=== PATIENT | male | born 1945 | race Caucasian/White ===

== ENCOUNTER 2017-01-11 08:33 | Outpatient (CLI) | payer MEDICARE, OTHER ==
[~2017-01-11] VITALS: Ht 183 cm; Wt 109.0 kg
[~2017-01-11 08:33] MED LIST: ALEVE 220MG220 MG PO; ALEVE220 MG PO; AMBIEN 5MG TABLE5 MG PO; ASPIRIN 81M81 MG/TA2 PO; ASPIRIN E.C. 8181 MG PO; BETIMOL 0.5% OPH5 ML; CIPRO 500MG TA500 MG PO; CIPRO500 MG PO; CPAP; FERROUS SULFATE65 MG PO; FLOMAX 0.40.4 MG/CAP PO; FORTAMET500 MG PO; GLUCOPHAGE500 MG/TAB PO; LEVAQUIN 5500 MG/TA1 PO; LIPITOR 10MG10 MG PO; LISINOPRIL10 MG PO; LORTAB 5/500 501 TAB PO; LORTAB PO; LUMIGAN 2.5 ML2.5 M1 OP; LUMIGAN EYE GTTS OD; MOBIC15 MG PO; MYRBETR50MG PO; NEURONTIN300 MG/CAP PO; PROAIR HFA0.09 MG/AC IH; RT ADVAIR 228 DISKUS IH; RT SPIRIVA18 MCG IH; SYNTHROID0.05 MG/TA PO; SYNTHROID0.075 MG/T PO; THEO-DUR 2200 MG/TAB PO; ULTRAM 50MG TAB50 MG PO; WELLBUTRIN XL150 MG PO; ZANTAC 150MG T150 MG PO; ZESTRIL 10MG10 MG PO; ZESTRIL 5MG5 MG PO
[2017-01-11] MEDS ORDERED: NORCO 325 MG-51 TAB PO (09:08)
[2017-01-11 09:24] VITALS: BP 125/76; PULSE 66; TEMP 97.1
[2017-01-11] MEDS ORDERED: CEPHALEXIN500 M1 PO (10:24)
[2017-01-11 10:32] VITALS: BP 137/106; PULSE 71
== END 2017-01-11 10:33 | disposition home or self-care (01) ==
LOC: EUO 08:33
DX: R55 Syncope and collapse (principal)
CPT/HCPCS: C1764

== ENCOUNTER 2017-01-26 13:33 | Day surgery (SDC) | payer MEDICARE, OTHER ==
[~2017-01-26] VITALS: Ht 182.9 cm; Wt 109.4 kg
[2017-01-26] VITALS (7 sets, daily range): BP systolic 121–143; BP diastolic 75–104; PULSE 78–88; TEMP 98.2–98.4
[~2017-01-26 13:33] MED LIST changes: +CEPHALEXIN500 M1 PO; +NORCO 325 MG-51 TAB PO
[2017-01-26] MEDS ORDERED: PROAIR HFA0.09 MG/AC IH (15:12)
[2017-01-26] MEDS ORDERED: ULTRAM 50MG TAB50 MG PO (15:15)
[2017-01-26] MEDS ORDERED: OMNICEF 300MG300 MG PO (15:16)
[2017-01-26] MEDS ORDERED: FLOMAX 0.40.4 MG/CAP PO (15:16)
[2017-01-27 01:16] VITALS: BP 119/64; PULSE 80; TEMP 98
[2017-01-27 05:34] VITALS: BP 111/69; PULSE 85; TEMP 98.5
[2017-01-27 10:19] VITALS: BP 130/77; PULSE 88; TEMP 98.3
[2017-01-27 14:21] VITALS: BP 133/63; PULSE 97; TEMP 98.9
== END 2017-01-27 14:45 | disposition home or self-care (01) ==
LOC: SDCO 13:33 → SURG 18:26 → SDCO 01-27 14:45
DX: N32.89 Other specified disorders of bladder (principal); R35.0 Frequency of micturition; N39.41 Urge incontinence; R82.99 Other abnormal findings in urine; R35.1 Nocturia; R39.12 Poor urinary stream; M19.90 Unspecified osteoarthritis, unspecified site; J44.9 Chronic obstructive pulmonary disease, unspecified; I10 Essential (primary) hypertension; G47.00 Insomnia, unspecified; Z87.442 Personal history of urinary calculi; G47.30 Sleep apnea, unspecified; Z79.899 Other long term (current) drug therapy; Z79.82 Long term (current) use of aspirin; Z87.891 Personal history of nicotine dependence
CPT/HCPCS: A4215; A9284; J0585; J2270; J2704; J3010; J7030

== ENCOUNTER 2018-10-17 15:00 | Inpatient (IN) | payer MEDICARE ==
[~2018-10-17] VITALS: Ht 182.9 cm; Wt 104.7 kg
[~2018-10-17 15:00] MED LIST changes: -BETIMOL 0.5% OPH5 ML; +COMBIGAN 0.2%-0.5 ML OU; +OMNICEF 300MG300 MG PO
[2018-10-17 18:12] VITALS: BP 147/70; PULSE 88; TEMP 98.4
[2018-10-18] MEDS ORDERED: TYLENOL 325MG325 MG PO (14:43)
[2018-10-18] MEDS ORDERED: WELLBUTRIN XL150 MG PO (14:44)
[2018-10-18] MEDS ORDERED: LOVENOX 3030 MG/0.3 SQ (14:45)
[2018-10-18 18:17] VITALS: BP 123/68; PULSE 100; TEMP 99.2
[2018-10-19 05:11] VITALS: BP 145/79; PULSE 86; TEMP 98.4
[2018-10-19 15:30] VITALS: BP 138/60; PULSE 83; TEMP 97.9
[2018-10-20 03:31] VITALS: BP 136/75; PULSE 79; TEMP 98.5
[2018-10-20 06:43] LABS: BASO # 0.1 (0.0-0.2); BASO % 0.7 % (0.0-2.0); EOS # 0.9 (0.0-0.7); EOS % 11.1 % (0-4.0); GRAN # 4.8 (1.4-6.5); GRAN % 62.1 % (42.2-75.2); LYMPH # 1.1 (1.2-3.4); MEAN CELL VOLUME 96 fl (80.0-100.0); MEAN CORPUSCULAR HGB CONC 30 g/dl (33.0-37.0); MEAN PLATELET VOLUME 9.6 fl (7.4-10.4); MONO # 0.9 (0.1-0.6); MONO % 11.4 % (1.7-9.3); PLATELET COUNT 450 K/mm3 (130-400); REDCELL DISTRIBUTION WIDTH-CV 15.6 % (11.5-14.5)
[2018-10-20 06:50] LABS: HEMATOCRIT 23.1 % (42.0-52.0); MEAN CORPUSCULAR HEMOGLOBIN 29 pg (27.0-31.0)
[2018-10-20 07:11] LABS: ALBUMIN 2.7 gm/dL (3.5-5.0); BILIRUBIN,TOTAL 0.3 mg/dL (0.0-1.0); CALCIUM 8.1 mg/dL (8.4-10.2); CREATININE, serum 2.66 mg/dL (0.66-1.25); MAGNESIUM 1.7 mg/dL (1.6-2.3); POTASSIUM 3.6 mmol/L (3.4-5.0); TOTAL PROTEIN 5.4 gm/dL (6.4-8.2)
[2018-10-20 17:41] VITALS: BP 126/66; PULSE 75; TEMP 97.9
[2018-10-21 04:35] VITALS: BP 118/52; PULSE 74; TEMP 97.7
[2018-10-21 18:22] VITALS: BP 122/66; PULSE 86; TEMP 97.6
[2018-10-22 04:23] VITALS: BP 153/85; PULSE 72; TEMP 98.2
[2018-10-22 17:19] VITALS: BP 114/64; PULSE 91; TEMP 98.2
[2018-10-23 03:44] VITALS: BP 126/68; PULSE 79; TEMP 99.1
[2018-10-23 14:25] LABS: BASO # 0.1 (0.0-0.2); BASO % 0.4 % (0.0-2.0); EOS # 0.3 (0.0-0.7); EOS % 2.4 % (0-4.0); GRAN # 11.3 (1.4-6.5); GRAN % 83.4 % (42.2-75.2); LYMPH # 0.7 (1.2-3.4); LYMPH % 5.4 % (20.0-51.0); MEAN CELL VOLUME 97 fl (80.0-100.0); MEAN CORPUSCULAR HGB CONC 29 g/dl (33.0-37.0); MEAN PLATELET VOLUME 9.3 fl (7.4-10.4); MONO % 7.6 % (1.7-9.3); PLATELET COUNT 593 K/mm3 (130-400); RED BLOOD COUNT 2.82 M/mm3 (4.20-5.60); REDCELL DISTRIBUTION WIDTH-CV 15.4 % (11.5-14.5)
[2018-10-23 14:27] LABS: HEMATOCRIT 27.3 % (42.0-52.0); MEAN CORPUSCULAR HEMOGLOBIN 28 pg (27.0-31.0)
[2018-10-23 14:51] LABS: CALCIUM 8.4 mg/dL (8.4-10.2); CREATININE, serum 2.84 mg/dL (0.66-1.25); MAGNESIUM 1.7 mg/dL (1.6-2.3); PHOSPHOROUS 3.6 mg/dL (2.5-4.5); POTASSIUM 3.7 mmol/L (3.4-5.0)
[2018-10-23 15:15] VITALS: BP 106/55; PULSE 92; TEMP 98.4
[2018-10-24 06:32] LABS: BASO # 0.1 (0.0-0.2); BASO % 0.6 % (0.0-2.0); EOS # 0.3 (0.0-0.7); EOS % 2.9 % (0-4.0); GRAN # 7.4 (1.4-6.5); GRAN % 74.2 % (42.2-75.2); LYMPH % 10.5 % (20.0-51.0); MEAN CELL VOLUME 96 fl (80.0-100.0); MEAN CORPUSCULAR HGB CONC 30 g/dl (33.0-37.0); MEAN PLATELET VOLUME 9.2 fl (7.4-10.4); MONO # 1.1 (0.1-0.6); MONO % 11.1 % (1.7-9.3); PLATELET COUNT 496 K/mm3 (130-400); RED BLOOD COUNT 2.44 M/mm3 (4.20-5.60); REDCELL DISTRIBUTION WIDTH-CV 15.4 % (11.5-14.5)
[2018-10-24 06:36] LABS: HEMATOCRIT 23.4 % (42.0-52.0); MEAN CORPUSCULAR HEMOGLOBIN 29 pg (27.0-31.0)
[2018-10-24 06:46] LABS: CALCIUM 8.3 mg/dL (8.4-10.2); CREATININE, serum 2.73 mg/dL (0.66-1.25); MAGNESIUM 1.8 mg/dL (1.6-2.3); POTASSIUM 3.7 mmol/L (3.4-5.0)
[2018-10-24 06:53] VITALS: BP 108/55; PULSE 82; TEMP 98.4
[2018-10-24 18:24] VITALS: BP 109/54; PULSE 80; TEMP 99.1
[2018-10-25 05:26] VITALS: BP 105/51; PULSE 72; TEMP 98.7
[2018-10-25 07:09] LABS: IRON,SERUM 12 ug/dL (35-150)
[2018-10-25 07:18] LABS: TOTAL IRON BINDING CAPACITY 226 ug/dL (261-462)
[2018-10-25 07:45] LABS: FERRITIN 251 ng/mL (18-464)
[2018-10-25 18:29] VITALS: BP 113/63; PULSE 87; TEMP 99.1
[2018-10-26 04:06] VITALS: BP 114/66; PULSE 71; TEMP 98.2
[2018-10-26 17:27] VITALS: BP 132/68; PULSE 81; TEMP 99.1
[2018-10-27 05:06] VITALS: PULSE 78
[2018-10-27] MEDS ORDERED: CEPHALEXIN500 M1 PO (09:21)
[2018-10-27] MEDS ORDERED: DIFLUCAN200 MG PO (09:23)
[2018-10-27] MEDS ORDERED: FERROUS SU325 MG/TAB PO (09:23)
[2018-10-27] MEDS ORDERED: DESENEX21 TP (09:28)
[2018-10-27] MEDS ORDERED: UNIPHYL600 MG PO (09:28)
[2018-10-27] MEDS ORDERED: TIMOLOL MALEATE5 M1 OP (09:31)
[2018-10-27] MEDS ORDERED: ROXICODONE 55 MG/TAB PO (09:31)
[2018-10-27] MEDS ORDERED: CIPRO 500MG TA500 MG PO (09:33)
== END 2018-10-27 15:00 | disposition home or self-care (01) | DRG 948 ==
PROVIDERS: Internal Medicine
DX: R53.81 Other malaise (principal); N18.4 Chronic kidney disease, stage 4 (severe); E87.2 Acidosis; D37.3 Neoplasm of uncertain behavior of appendix; N31.9 Neuromuscular dysfunction of bladder, unspecified; Z93.2 Ileostomy status; J44.9 Chronic obstructive pulmonary disease, unspecified; E11.22 Type 2 diabetes mellitus with diabetic chronic kidney disease; D63.1 Anemia in chronic kidney disease; I25.10 Atherosclerotic heart disease of native coronary artery without angina pectoris; E78.5 Hyperlipidemia, unspecified; Z87.891 Personal history of nicotine dependence; Z85.72 Personal history of non-Hodgkin lymphomas; G47.33 Obstructive sleep apnea (adult) (pediatric)
CPT/HCPCS: 99222-AI; 99232-AI; 99239; J1650; J1815

== ENCOUNTER 2018-11-08 12:54 | Inpatient (IN) | payer MEDICARE ==
[~2018-11-08] VITALS: Ht 182.9 cm; Wt 100.1 kg
[~2018-11-08 12:54] MED LIST changes: +DESENEX21 TP; +DIFLUCAN200 MG PO; +FERROUS SU325 MG/TAB PO; +LOVENOX 3030 MG/0.3 SQ; +ROXICODONE 55 MG/TAB PO; +TIMOLOL MALEATE5 M1 OP; +TYLENOL 325MG325 MG PO; +UNIPHYL600 MG PO
[2018-11-08 14:56] VITALS: BP 115/66; PULSE 96; TEMP 97.8
[2018-11-08] MEDS ORDERED: UNIPHYL600 MG PO (15:27)
[2018-11-08] MEDS ORDERED: LASIX 40MG TABL40 MG PO (15:28)
--- NOTE | 2018-11-08 16:04 | NUR ---
Pt arrived to room 316 via EMS. at bedside. Pt is A/O x3. His breathing is currently even and unlabored on 2L O2 via NC. Pt has left arm wrapped in gauze and chux, a lot of weeping from arm. Pt has jimenes draining dependently. Intermittent nausea present. POC discussed with patient and , deny further needs. Call light within reach.
--- NOTE | 2018-11-08 18:01 | NUR ---
Lab unable to draw blood, will be sending up new tech to attempt blood draw. Levaquin not run at this time.
[2018-11-08 20:00] VITALS: BP 107/53; PULSE 98; TEMP 96.4
[2018-11-09] VITALS (8 sets, daily range): BP systolic 111–128; BP diastolic 52–96; PULSE 84–96; TEMP 96.1–98.3
--- NOTE | 2018-11-09 05:52 | NUR ---
Pt sitting in bed watching TV on initial encounter, shift assessments completed. Pt slept well during the night with no C/O pain, VS have been stable during the night, Pt did have a bowel movement during the shift. The drain line from the ilieal conduit colostomy appliance to the jimenes collection bag came off twice during the shift, the connetion hose ends were cleaned and taped with foam tape to maintain a connection between the two devices. No C/O pain during the night, VS have been stable.
--- NOTE | 2018-11-09 10:32 | NUR ---
Initial visit; Patient thanked Car Carder for looking in on him and keeping him in her prayers.
--- NOTE | 2018-11-09 11:02 | NUR ---
Assessment completed, alert/oriented, vital signs stable, denies pain or discomfort, denies nausea/vomitting and stated he is able to keep some food/drink down but does not have much of an appetite, Associate Professor Of Literature and nursing have been unable to obtain any blood from him for lab work/ I have notified and he is arranging to have a central line place with IR, heart RRR/distal pulses are palpable, lung CTA/ diminished, has large skin tear to left upper/ posterior arm from a fall at home, I have applied a dressing to this wound, in room at this time to discuss plan of care with patient and his
[2018-11-09 16:07] LABS: BASO # 0.1 (0.0-0.2); BASO % 0.3 % (0.0-2.0); EOS % 0.1 % (0-4.0); GRAN # 24.1 (1.4-6.5); GRAN % 90.5 % (42.2-75.2); HEMOGLOBIN 10.1 g/dl (13.5-18.0); LYMPH # 0.9 (1.2-3.4); LYMPH % 3.5 % (20.0-51.0); MEAN CELL VOLUME 92 fl (80.0-100.0); MEAN CORPUSCULAR HEMOGLOBIN 28 pg (27.0-31.0); MEAN CORPUSCULAR HGB CONC 30 g/dl (33.0-37.0); MEAN PLATELET VOLUME 9.8 fl (7.4-10.4); MONO # 1.2 (0.1-0.6); MONO % 4.4 % (1.7-9.3); PLATELET COUNT 311 K/mm3 (130-400); RED BLOOD COUNT 3.63 M/mm3 (4.20-5.60); REDCELL DISTRIBUTION WIDTH-CV 15.9 % (11.5-14.5)
[2018-11-09 16:19] LABS: ALBUMIN 2.8 gm/dL (3.5-5.0); CALCIUM 8.5 mg/dL (8.4-10.2); CREATININE, serum 3.58 mg/dL (0.66-1.25); PHOSPHOROUS 5.8 mg/dL (2.5-4.5); POTASSIUM 4.8 mmol/L (3.4-5.0)
--- NOTE | 2018-11-09 16:21 | NUR ---
BETI met with the patient and patient's , Silvia, to discuss discharge plan. The patient was recently discharged, 10/27, from [facility] with outpatient PT/OT set up. The patient's reports that the patient was doing great for a few days and then he got weaker, had no appetite, and was falling. The patient lives in [place] with his . The patient's reports that the patient was needing assistance with ADL's half of the time and that he has a cane and walker. The patient's PCP is Dr. Casey Haile and he receives his medications at the [facility] in [place]. The patient's reports no difficulties obtaininig his meds. The patient does not have advanced directives, but the patient's reports that the patient still has the form SW provided him during his last stay. The patient's reports that they will look over it again. SW to continue to follow to ensure a safe discharge.
[2018-11-09 16:57] LABS: HEMATOCRIT 33.4 % (42.0-52.0)
--- NOTE | 2018-11-09 22:51 | NUR ---
PT HAS SOME C/O NAUSEA, NO NOTED EMISIS. PT HAS ZOFRAN ON ORDER. OFFERED PT ZOFRAN PT REFUSED, STATED "I'LL BE ALRIGHT" INFORMED PT THAT IF HE STARTS TO VOMIT I COULD GET HIM SOMETHING FOR IT. PT SAID "OK". THIS NURSE RETURNED LATER TO PT ROOM TO [facility]. PT HAD C/O CHEST PAIN THAT WAS A SHARP TYPE OF PAIN THAT COMES AND GOES. PT STATED THAT HIS NAUSEA IS HAS BEEN COMING AND GOING BUT NOT INTOLERATBLE. THIS NURSE TOOK VITALS, VITALS WNL. OFFERED PT THE ZOFRAN AGAIN, PT REFUSED. PT STATED THAT HE WILL BE FINE. INFORMED PT THAT I WOULD CHECK ON HIM AGAIN AT A LATER TIME TO MAKE SURE HES DOING OK.
[2018-11-10 00:46] VITALS: BP 99/70; PULSE 91; TEMP 97.5
[2018-11-10 04:00] VITALS: BP 132/66; PULSE 95; TEMP 97.9
--- NOTE | 2018-11-10 04:05 | NUR ---
PT HAD NO FURTHER C/O NAUSEA OR NOTED VOIMITTING. NO FURTHER C/O CHEST PAIN AFTER THE FIRST COMPLAINT. APPEARED TO HAVE RESTED WELL THIS NOC.
[2018-11-10 06:21] LABS: BASO # 0.1 (0.0-0.2); BASO % 0.3 % (0.0-2.0); EOS # 0.1 (0.0-0.7); EOS % 0.3 % (0-4.0); GRAN # 18.2 (1.4-6.5); LYMPH % 4.9 % (20.0-51.0); MEAN CELL VOLUME 94 fl (80.0-100.0); MEAN CORPUSCULAR HGB CONC 30 g/dl (33.0-37.0); MEAN PLATELET VOLUME 10.1 fl (7.4-10.4); MONO # 0.7 (0.1-0.6); MONO % 3.6 % (1.7-9.3); PLATELET COUNT 292 K/mm3 (130-400); RED BLOOD COUNT 3.42 M/mm3 (4.20-5.60); REDCELL DISTRIBUTION WIDTH-CV 15.9 % (11.5-14.5)
[2018-11-10 07:12] LABS: ALBUMIN 2.6 gm/dL (3.5-5.0); CALCIUM 8.4 mg/dL (8.4-10.2); CREATININE, serum 3.48 mg/dL (0.66-1.25); PHOSPHOROUS 5.1 mg/dL (2.5-4.5); POTASSIUM 4.5 mmol/L (3.4-5.0)
[2018-11-10 07:18] LABS: HEMOGLOBIN 9.5 g/dl (13.5-18.0); MEAN CORPUSCULAR HEMOGLOBIN 28 pg (27.0-31.0)
[2018-11-10 07:26] VITALS: BP 109/72; PULSE 82; TEMP 98.2
--- NOTE | 2018-11-10 07:55 | NUR ---
Assessment completed, alert/oriented, vital signs stable, denies pain this morning, stated "stomach not feeling too bad today" and he is sitting up in bed eating a muffin, abdomen is soft and BS+, denies N/V this morning, heart RRR/distal pulses are palpable, illeal conduit draining/ moderate dark urine output, Right sided TLIJ central line was placed yesterday and is working good/ labs drawn this morning, records requested from [facility], denies needs at this time
[2018-11-10 10:45] VITALS: BP 104/64; PULSE 95; TEMP 98.5
--- NOTE | 2018-11-10 10:54 | NUR ---
Follow-up visit; Patient thanked Manager [employer] for looking in on him and offering God's blessings today.
[2018-11-10 16:31] VITALS: BP 112/69; PULSE 87; TEMP 98.7
[2018-11-10 19:41] VITALS: BP 123/72; PULSE 96; TEMP 97.5
[2018-11-11 00:22] VITALS: BP 111/69; PULSE 93; TEMP 97.8
--- NOTE | 2018-11-11 04:18 | NUR ---
PT HAD UNEVENTFUL NOC. AT HS PT WALKED TO BATHROOM, TO ATTEMPT A BM. PT WAS ABLE TO SLOWLY WALK TO BATHROOM. PT WAS STEADY BUT STATED HE WAS DIZZY AT TIMES, SOB, AND WEAK. NO NOTED PAIN WITH AMBULATION. PT STATED HE DIDNT WANT TO GET UP TO WALK AGAIN UNTIL A LATER DATE. WAS AT BEDSIDE AT THAT TIME. NO N/V/D THIS SHIFT. NO C/O PAIN. WORE CPAP THROUGHOUT NOC. PT APPEARED TO HAVE SLEPT WELL.
[2018-11-11 05:00] VITALS: BP 95/64; PULSE 93; TEMP 97.4
[2018-11-11 05:59] LABS: BASO % 0.2 % (0.0-2.0); EOS # 0.1 (0.0-0.7); EOS % 0.7 % (0-4.0); GRAN # 13.4 (1.4-6.5); GRAN % 88.3 % (42.2-75.2); LYMPH # 0.9 (1.2-3.4); LYMPH % 5.8 % (20.0-51.0); MEAN CELL VOLUME 93 fl (80.0-100.0); MEAN CORPUSCULAR HGB CONC 30 g/dl (33.0-37.0); MEAN PLATELET VOLUME 9.9 fl (7.4-10.4); MONO # 0.7 (0.1-0.6); MONO % 4.3 % (1.7-9.3); PLATELET COUNT 262 K/mm3 (130-400); RED BLOOD COUNT 3.33 M/mm3 (4.20-5.60)
[2018-11-11 06:16] LABS: ALBUMIN 2.6 gm/dL (3.5-5.0); CALCIUM 8.2 mg/dL (8.4-10.2); CREATININE, serum 3.27 mg/dL (0.66-1.25); PHOSPHOROUS 4.1 mg/dL (2.5-4.5); POTASSIUM 4.2 mmol/L (3.4-5.0)
[2018-11-11 06:21] LABS: HEMATOCRIT 30.8 % (42.0-52.0); HEMOGLOBIN 9.3 g/dl (13.5-18.0); MEAN CORPUSCULAR HEMOGLOBIN 28 pg (27.0-31.0)
[2018-11-11 08:24] VITALS: BP 119/69; PULSE 83; TEMP 98.1
--- NOTE | 2018-11-11 10:06 | NUR ---
Pt alert and oriented and resting in bed. Pt has s/t on right elbow from previous fall. Pt has right IJ central line that is patent and no redness or infiltration noted. Pt denies pain and SOB. Pt ileal conduit patent and no surrounding redness noted. Pt has call light in reach and denies needs.
[2018-11-11 11:49] VITALS: BP 112/70; PULSE 90; TEMP 97.3
[2018-11-11 15:49] VITALS: BP 109/66; PULSE 87; TEMP 97.6
--- NOTE | 2018-11-11 18:33 | NUR ---
Pt dressing and cap change completed for right neck triple lumen central line. Pt did not have any other IV in place at shift change this am. Pt stable and had an episode of incontinent BM this evening and cares provided. Pt has spouse at bedside and call light in reach.
[2018-11-11 19:52] VITALS: BP 94/56; PULSE 86; TEMP 98.4
[2018-11-12] VITALS: BP 110/68; PULSE 90; TEMP 97.4
[2018-11-12 03:36] VITALS: BP 109/62; PULSE 86; TEMP 97.4
--- NOTE | 2018-11-12 04:01 | NUR ---
PT HAD UNEVENTFUL NOC. REFUSED TO WEAR CPAP TONIGHT. NO NOTED PAIN OR N/V/D. NO ISSUES OR CONSERNS VOICED THIS SHIFT.
[2018-11-12 05:36] LABS: BASO % 0.3 % (0.0-2.0); EOS # 0.2 (0.0-0.7); EOS % 1.6 % (0-4.0); GRAN # 11.2 (1.4-6.5); GRAN % 84.3 % (42.2-75.2); LYMPH % 7.6 % (20.0-51.0); MEAN CELL VOLUME 94 fl (80.0-100.0); MEAN CORPUSCULAR HGB CONC 30 g/dl (33.0-37.0); MEAN PLATELET VOLUME 9.8 fl (7.4-10.4); MONO # 0.8 (0.1-0.6); MONO % 5.7 % (1.7-9.3); PLATELET COUNT 264 K/mm3 (130-400); RED BLOOD COUNT 3.38 M/mm3 (4.20-5.60); REDCELL DISTRIBUTION WIDTH-CV 16.3 % (11.5-14.5)
[2018-11-12 05:37] LABS: HEMATOCRIT 31.9 % (42.0-52.0); HEMOGLOBIN 9.4 g/dl (13.5-18.0); MEAN CORPUSCULAR HEMOGLOBIN 28 pg (27.0-31.0)
[2018-11-12 05:44] LABS: ALBUMIN 2.6 gm/dL (3.5-5.0); CALCIUM 8.2 mg/dL (8.4-10.2); CREATININE, serum 2.98 mg/dL (0.66-1.25); PHOSPHOROUS 3.7 mg/dL (2.5-4.5); POTASSIUM 4.1 mmol/L (3.4-5.0)
--- NOTE | 2018-11-12 07:19 | NUR ---
Pt sitting up in bed eating breakfast. Pt denies pain. Pt alert and oriented. Pt has call light in reach.
[2018-11-12 07:24] VITALS: BP 114/63; PULSE 96; TEMP 97.5
--- NOTE | 2018-11-12 08:32 | NUR ---
Pt alert and oriented and just finished breakfast. Pt denies pain and SOB. Pt am assessment completed. Pt given am meds with education. Pt central line to RIJ flushed and patent. No redness or infiltration noted and blood return noted. Pt ileal conduit patent and some light yellow mucous noted in bag. Pt states he changes every three days and tomorrow will be day 3 per pt. Pt has call light in reach and denies needs.
--- NOTE | 2018-11-12 09:57 | NUR ---
Pt trying to rest but does not seem to be able to sleep. Pt little confused about time of day but reorients easily. Pt called his spouse. Pt oxygen saturation was checked and saturation 98% on room air. Pt has call light in reach and fall precautions in place and bed alarm on.
[2018-11-12 12:30] VITALS: BP 102/69; PULSE 80; TEMP 97.4
[2018-11-12 16:09] VITALS: BP 108/67; PULSE 83; TEMP 97.6
--- NOTE | 2018-11-12 16:25 | NUR ---
Pt was assisted by 2 to BSC with gait belt. Pt shuffled steps and was unsteady and unable to bear weight long. Pt did have small BM while on BSC. Pt given bath while up and bed linens changed. Pt had oxygen on via nasal cannula and SOB noted with increased activity. Pt assisted back to bed per request. Pt spouse at bedside. Pt has PT eval and tx ordered. Pt has call light in reach and ileal conduit patent and needs to be changed 11/13/18.
[2018-11-12 19:53] VITALS: BP 106/51; PULSE 86; TEMP 98.1
--- NOTE | 2018-11-12 20:30 | NUR ---
Initial shift assessment done- alert/oriented tonight- denies pain, wearing home CPAP, states he feels tired tonight,,Ileal conduit to DD jimenes bag- urine yellow with sediment. Incontinent of urine- cleaned up/repositioned
[2018-11-13] VITALS (7 sets, daily range): BP systolic 91–121; BP diastolic 63–76; PULSE 72–89; TEMP 97.6–98.8
--- NOTE | 2018-11-13 05:11 | NUR ---
Quiet night- Did sleep for a few hours, now awake, wanting some tea- states its time for work,,confused-reoriented. VSS. SCD,s on. Ileo-conduit with 900cc cloudy yellow urine-
[2018-11-13 06:18] LABS: BASO % 0.3 % (0.0-2.0); EOS # 0.3 (0.0-0.7); EOS % 2.8 % (0-4.0); GRAN # 9.7 (1.4-6.5); LYMPH % 8.5 % (20.0-51.0); MEAN CELL VOLUME 95 fl (80.0-100.0); MEAN CORPUSCULAR HGB CONC 29 g/dl (33.0-37.0); MONO # 0.7 (0.1-0.6); MONO % 5.6 % (1.7-9.3); PLATELET COUNT 254 K/mm3 (130-400); REDCELL DISTRIBUTION WIDTH-CV 16.4 % (11.5-14.5)
[2018-11-13 06:31] LABS: ALBUMIN 2.5 gm/dL (3.5-5.0); CREATININE, serum 2.54 mg/dL (0.66-1.25); HEMATOCRIT 30.5 % (42.0-52.0); HEMOGLOBIN 8.9 g/dl (13.5-18.0); MEAN CORPUSCULAR HEMOGLOBIN 28 pg (27.0-31.0); PHOSPHOROUS 3.5 mg/dL (2.5-4.5)
--- NOTE | 2018-11-13 08:24 | NUR ---
Patient is alert, oriented to self and sometimes to situation. Denies any pain. Patient assisted to commode with 2 assist. Passing gas and had a BM this AM. Vargas is draining adequately. Denies SOB, VSS on room air. Tolerating diet, denies N/V. SCDs applied. Call light within reach and will continue to monitor.
--- NOTE | 2018-11-13 14:38 | NUR ---
Patient has been sitting up in chair since after lunch, tolerating well.
--- NOTE | 2018-11-13 15:57 | NUR ---
The patient completed DPOA-HC. BETI and the patient's RN witnessed the patient sign. The patient named his , Silvia. The patient was provided with the original and some copies. A copy was placed in the patient's chart. SW addressed physical therapies recommendation of post-acute rehab with the patient's . Silvia reports that she needs 24 hours to think about this option and the different fdc facilities. SW to follow up with the patient's tomorrow, 11/14.
--- NOTE | 2018-11-13 17:15 | NUR ---
Patient has been resting in bed for the rest of the afternoon. Catheter is draining adequately. Patient had multiple BMs throughout the day. Denies any pain. IJ flushes well. Call light within reach and will give report to shift engineer RN.
--- NOTE | 2018-11-13 19:59 | NUR ---
Pt nappin in bed, shift assessments complee, no C/O pain, left Pt call light in reach, bed in lowest position.
[2018-11-14 00:26] VITALS: BP 93/53; PULSE 82; TEMP 97.3
[2018-11-14 04:12] VITALS: BP 118/64; PULSE 80; TEMP 98
--- NOTE | 2018-11-14 05:36 | NUR ---
Pt slept well during the night, no C/O pain, VS have remained stable.
[2018-11-14 06:09] LABS: BASO % 0.3 % (0.0-2.0); EOS # 0.4 (0.0-0.7); EOS % 3.2 % (0-4.0); GRAN # 9.5 (1.4-6.5); GRAN % 81.1 % (42.2-75.2); LYMPH % 8.2 % (20.0-51.0); MEAN CELL VOLUME 94 fl (80.0-100.0); MEAN CORPUSCULAR HGB CONC 30 g/dl (33.0-37.0); MEAN PLATELET VOLUME 9.8 fl (7.4-10.4); MONO # 0.7 (0.1-0.6); MONO % 6.3 % (1.7-9.3); PLATELET COUNT 245 K/mm3 (130-400); RED BLOOD COUNT 3.24 M/mm3 (4.20-5.60); REDCELL DISTRIBUTION WIDTH-CV 16.8 % (11.5-14.5)
[2018-11-14 06:14] LABS: HEMATOCRIT 30.5 % (42.0-52.0); MEAN CORPUSCULAR HEMOGLOBIN 28 pg (27.0-31.0)
[2018-11-14 06:18] LABS: ALBUMIN 2.6 gm/dL (3.5-5.0); CALCIUM 7.9 mg/dL (8.4-10.2); CREATININE, serum 2.31 mg/dL (0.66-1.25); PHOSPHOROUS 3.5 mg/dL (2.5-4.5)
[2018-11-14 07:23] VITALS: BP 113/66; PULSE 82; TEMP 97.9
--- NOTE | 2018-11-14 07:40 | NUR ---
Assessment complete. Pt is alert but confused; cannot answer orientation questions appropriately. Denies having any pain at this time. Breathing is even and unlabored on room air. RIJ has good blood return, flushes easily, remains free of complications, and is CDI. Spoke with the pt's on the phone; all questions answered. Pt is sitting up in the bed eating his breakfast at this time and he denies further needs. Call light within reach, will continue to monitor.
[2018-11-14 11:28] VITALS: BP 121/76; PULSE 86; TEMP 97.6
--- NOTE | 2018-11-14 15:41 | NUR ---
BETI followed up with the patient and patient's , Silvia, on preferred post-acute rehab. The patient reports that he would be agreeable to post-acute rehab and preferred [facility]) [facility]) [facility]. Patient choice form signed by the patient and he was provided a copy. BETI has contacted and faxed a referral to both facilities. [phone]#[phone]
[2018-11-14 15:56] VITALS: BP 107/66; PULSE 89; TEMP 98.9
--- NOTE | 2018-11-14 16:27 | NUR ---
Laura, at [facility], reports that they can accept the patient for a skilled stay.
[2018-11-14 19:38] VITALS: BP 117/70; PULSE 85; TEMP 98.2
--- NOTE | 2018-11-14 20:50 | NUR ---
Shift assessment complete. Pt resting in bed, awake, a&o c int confusion. Pt denies pain or other c/o at this time. Right IJ TLC noted, patent c good blood return from all ports. Pt denies needs. Call light in reach, bed alarm on, will monitor.
[2018-11-15] VITALS: BP 116/65; PULSE 85; TEMP 98.4
[2018-11-15 06:18] LABS: BASO % 0.2 % (0.0-2.0); EOS # 0.3 (0.0-0.7); EOS % 3.8 % (0-4.0); GRAN # 6.9 (1.4-6.5); GRAN % 75.7 % (42.2-75.2); LYMPH # 1.1 (1.2-3.4); LYMPH % 12.3 % (20.0-51.0); MEAN CELL VOLUME 94 fl (80.0-100.0); MEAN CORPUSCULAR HGB CONC 30 g/dl (33.0-37.0); MEAN PLATELET VOLUME 9.6 fl (7.4-10.4); MONO # 0.7 (0.1-0.6); MONO % 7.3 % (1.7-9.3); PLATELET COUNT 257 K/mm3 (130-400); RED BLOOD COUNT 3.25 M/mm3 (4.20-5.60); REDCELL DISTRIBUTION WIDTH-CV 17.1 % (11.5-14.5)
[2018-11-15 06:30] LABS: HEMATOCRIT 30.4 % (42.0-52.0); HEMOGLOBIN 9.1 g/dl (13.5-18.0); MEAN CORPUSCULAR HEMOGLOBIN 28 pg (27.0-31.0)
[2018-11-15 06:32] LABS: ALBUMIN 2.7 gm/dL (3.5-5.0); CALCIUM 8.2 mg/dL (8.4-10.2); CREATININE, serum 2.28 mg/dL (0.66-1.25); PHOSPHOROUS 3.3 mg/dL (2.5-4.5); POTASSIUM 3.9 mmol/L (3.4-5.0)
--- NOTE | 2018-11-15 08:20 | NUR ---
Assessment complete. Pt is AXO X3, denies having any pain at this time. Breathing is even and unlabored on room air. RIJ has good blood return, flushes easily, remains free of complications, and is CDI. Ileal conduit is draining yellow urine with sediment and it remains free of complications. Pt is sitting up in the bed eating his breakfast at this time and he denies further needs. Call light within reach, will continue to monitor.
[2018-11-15 08:23] VITALS: BP 124/71; PULSE 96; TEMP 97.6
[2018-11-15 12:10] VITALS: BP 116/71; PULSE 81; TEMP 98.4
[2018-11-15] MEDS ORDERED: LASIX 40MG TABL40 MG PO (12:53)
[2018-11-15] MEDS ORDERED: REGLAN 5MG T5 MG/TAB PO (12:54)
[2018-11-15] MEDS ORDERED: SODIUM BICARBO650 MG PO (12:54)
--- NOTE | 2018-11-15 13:36 | NUR ---
Morenita, at [facility], reports that they have declined the patient. SW then contacted the patient's , Silvia, to inform. Silvia reports that she is agreeable for the patient to transfer to [facility] upon discharge.
--- NOTE | 2018-11-15 14:58 | NUR ---
The patient is to discharge today, 11/15, to [facility] for a skilled stay. Transportation to be by private car, via the patient's . SW presented and explained the IM form to the patient's . The patient's verbalized understanding, signed, and she was provided a copy. No additional needs at this time.
--- NOTE | 2018-11-15 15:08 | NUR ---
Central IJ removed with full catheter intact; site held for 10 minutes post removal. Pressure gauze and tegaderm dressing placed to site post pressure observation. PT and spouse educated on 24hr dressing time. No visible bleeding at time of removal. CDA
[2018-11-15 15:18] VITALS: BP 116/71; PULSE 81; TEMP 98.4
--- NOTE | 2018-11-15 15:36 | NUR ---
Pt discharged at this time. RIJ catheter removal site is CDI. Pt's is at the bedside; all questions answered. Report called to [facility] nurse. Pt escourted out via with MAGALY George.
== END 2018-11-15 15:39 | DRG 871 ==
LOC: MEDICAL 12:54
PROVIDERS: ADMIT Internal Medicine Nephrology
PROC: 02HV33Z Insertion of Infusion Device into Superior Vena Cava, Percutaneous Approach (ICD-10-PCS; principal; 2018-11-09)
DX: A41.9 Sepsis, unspecified organism (principal); N17.0 Acute kidney failure with tubular necrosis; N39.0 Urinary tract infection, site not specified; E87.2 Acidosis; N18.4 Chronic kidney disease, stage 4 (severe); C78.6 Secondary malignant neoplasm of retroperitoneum and peritoneum; E44.0 Moderate protein-calorie malnutrition; J44.9 Chronic obstructive pulmonary disease, unspecified; E11.22 Type 2 diabetes mellitus with diabetic chronic kidney disease; I25.10 Atherosclerotic heart disease of native coronary artery without angina pectoris; E78.5 Hyperlipidemia, unspecified; Z85.72 Personal history of non-Hodgkin lymphomas; Z87.891 Personal history of nicotine dependence; D63.1 Anemia in chronic kidney disease; K52.9 Noninfective gastroenteritis and colitis, unspecified; Z68.29 Body mass index [BMI] 29.0-29.9, adult
CPT/HCPCS: J1644; J1815; J1956; J2765

== ENCOUNTER 2020-06-16 12:40 | Day surgery (SDC) | payer MEDICARE ==
[~2020-06-16] VITALS: Ht 183 cm; Wt 100.8 kg
[2020-06-16] VITALS (8 sets, daily range): BP systolic 118–133; BP diastolic 76–82; PULSE 68–77; TEMP 98.7
[~2020-06-16 12:40] MED LIST changes: +FERROUS GL325 MG/TAB PO; +LASIX 40MG TABL40 MG PO; +PRILOSEC 20MG20 MG PO; +REGLAN 5MG T5 MG/TAB PO; +SODIUM BICARBO650 MG PO
[2020-06-16] MEDS ORDERED: SYNTHROID0.075 MG/T PO (13:57)
[2020-06-16] MEDS ORDERED: PRIL40 PO (13:58)
[2020-06-16] MEDS ORDERED: REGLAN 5MG T5 MG/TAB PO (13:59)
[2020-06-16] MEDS ORDERED: TRAVATAN Z 5 ML5 ML OD (14:00)
[2020-06-16] MEDS ORDERED: REMERON SOLTAB15 MG PO (14:00)
[2020-06-16] MEDS ORDERED: PROAIR HFA0.09 MG/AC IH (14:01)
[2020-06-16] MEDS ORDERED: TRELEGY ELLIPT1 EACH IH (14:02)
[2020-06-16] MEDS ORDERED: SODIUM BICARBO650 MG PO (14:03)
[2020-06-16] MEDS ORDERED: RITUXAN HY1400 MG/11 SQ (14:06)
[2020-06-16] MEDS ORDERED: SYSTANE NIGHTT3.5 GM OP (14:07)
--- NOTE | 2020-06-16 15:37 | NUR ---
SEE MERGE DOCUMENTATION FOR MEDICATION ADMINISTRATION TIMES AND INTRA/POST PROCEDURE SEDATION ASSESSMENTS.
--- NOTE | 2020-06-16 16:00 | NUR ---
Back from laborer tree tapping by bed. Dressing to left upper chest CD&I. VSS. Dr. Mendez in to talk with
[2020-06-16] MEDS ORDERED: CEPHALEXIN500 M1 PO (16:01)
--- NOTE | 2020-06-16 17:30 | NUR ---
INT discontinued intact. Discharge instruciotns given to . Transferred to private car by wc by Gregoria MCKENZIE
== END 2020-06-16 17:30 | disposition home or self-care (01) ==
LOC: COL.CAR 12:40
DX: I48.0 Paroxysmal atrial fibrillation (principal); I47.2 Ventricular tachycardia; I25.10 Atherosclerotic heart disease of native coronary artery without angina pectoris; I44.7 Left bundle-branch block, unspecified; I10 Essential (primary) hypertension; E78.5 Hyperlipidemia, unspecified; I27.20 Pulmonary hypertension, unspecified; J44.9 Chronic obstructive pulmonary disease, unspecified; Z92.21 Personal history of antineoplastic chemotherapy; Z85.71 Personal history of Hodgkin lymphoma
CPT/HCPCS: C1764; J0690; J2250; J3010

== ENCOUNTER → 2021-02-19 | Outpatient (CLI) | payer MEDICARE ==
[~2021-02-19] MED LIST changes: +PRIL40 PO; +REMERON SOLTAB15 MG PO; +RITUXAN HY1400 MG/11 SQ; +SYNTHROID0.125 MG/T PO; +SYSTANE NIGHTT3.5 GM OP; +TRAVATAN Z 5 ML5 ML OD; +TRELEGY ELLIPT1 EACH IH
== END ==
LOC: COL.VAS 13:01
DX: I95.1 Orthostatic hypotension (principal)